=== PATIENT | male | born 1945 | race Caucasian/White ===

== ENCOUNTER 2017-05-15 08:32 | Emergency (ER) | payer MEDICARE ==
[~2017-05-15 08:32] MED LIST: AMIO200 PO; ASPI81TA82 PO; ATOR40TA49 PO; AUGM500T7 PO; CLOP75 PO; COMMODE 3:1; DOCU1CAP39 PO; HYDR12.56 PO; LORTA5 PO; METO25 PO; TAB-TAB PO; TUB TRANSFER BENCH; WALKER ROLLING; [UNRECOGNIZED DRUG - OTHER]
[2017-05-15 08:34] VITALS: BP 163/92; PULSE 66; RESP 20; TEMP 97.8; O2SAT 97
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
[2017-05-15] MEDS ORDERED: METO25TA3 PO (08:52)
[2017-05-15] MEDS ORDERED: ASPI81TA19 PO (08:52)
[2017-05-15] MEDS ORDERED: AMLO5TAB2 PO (08:52)
[2017-05-15] MEDS ORDERED: SIMV20TA PO (08:52)
[2017-05-15] MEDS ORDERED: HYDR25TA5 PO (08:52)
[2017-05-15] MEDS ORDERED: MULT1TAB46 (08:52)
[2017-05-15] MEDS ORDERED: TYLE325T PO (09:43)
[2017-05-15] MEDS ORDERED: PRED20 PO (09:43)
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
== END 2017-05-15 10:21 | disposition home or self-care (01) ==
LOC: NEPD 08:32
DX: S60.222A Contusion of left hand, initial encounter (principal); S50.812A Abrasion of left forearm, initial encounter; S50.312A Abrasion of left elbow, initial encounter; I10 Essential (primary) hypertension; V03.19XA Pedestrian with other conveyance injured in collision with car, pick-up truck or van in traffic accident, initial encounter; Y92.410 Unspecified street and highway as the place of occurrence of the external cause; Z79.82 Long term (current) use of aspirin; Z79.899 Other long term (current) drug therapy
CPT/HCPCS: 73110; 73130; 99283; L3908